=== PATIENT | female | born 1935 | race Caucasian/White ===

== ENCOUNTER 2016-09-06 10:24 | Outpatient (CLI) | END 2016-09-06 10:25 | disposition home or self-care (01) ==

== ENCOUNTER 2016-12-12 10:36 | Outpatient (CLI) | payer MEDICARE, OTHER | END 2016-12-12 10:37 | disposition home or self-care (01) | DX: C50.911 Malignant neoplasm of unspecified site of right female breast (principal) ==

== ENCOUNTER 2017-10-08 15:33 | Emergency (ER) | payer MEDICARE, OTHER ==
[2017-10-08 15:45] VITALS: BP 133/80
--- NOTE | 2017-10-08 16:19 | ED Physician Documentation ---
PD HPI LOWER EXT INJURY - Stated complaint Stated Complaint: KNEE PAIN - Chief complaint Chief Complaint: Ext Problem - History obtained from History obtained from: Patient - History of Present Illness PD HPI LOW EXT INJURY LOCATION: Other (She has a long history of knee problems, had multiple surgeries but not for many years. Her knees were doing okay but coming down the stairs today at [employer] she started to feel a pop and tightness in the knee and was having difficulty walking, she is pain-free at rest. 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, Breast cancer (Status post right lumpectomy and 6 weeks of radiation therapy.) : Frequency HEENT: Glaucoma Psych: None Musculoskeletal: Osteoarthritis Derm: 12 - Past Surgical History Past Surgical History: Yes General: Cholecystectomy, Appendectomy /TRACTOR CRANE OPERATOR: Hysterectomy, Oophrectomy HEENT: Cataracts - Present Medications Home Medications: Ambulatory Orders Medication Instructions Recorded Confirmed Amlodipine Besylate 10 mg PO DAILY 01/18/13 02/27/17 Calcium Carbonate/Vitamin D3 1 each PO DAILY 01/18/13 02/27/17 [Calcium 600 + D3 Softgel] Cholecalciferol (Vitamin D3) 1,000 unit PO DAILY 01/18/13 02/27/17 [Vitamin D] Dextran 70/Hypromellose 1 each EACHEYE DAILY PRN 01/18/13 02/27/17 [Artificial Tears] Hydrochlorothiazide 25 mg PO DAILY 01/18/13 02/27/17 Omeprazole [PriLOSEC] 10 mg PO DAILY 01/18/13 02/27/17 Aspirin [Aspirin EC] 650 mg ORAL DAILY 06/16/14 02/27/17 Potassium Chloride 10 meq ORAL DAILY 06/16/14 02/27/17 Timolol 0.25% Ophth Drops 1 drop EACHEYE BID 06/16/14 02/27/17 [Timoptic 0.25% Ophth Drops] - Allergies Allergies/Adverse Reactions: Allergies Allergy/AdvReac Type Severity Reaction Status Date / Time sulfamethoxazole Allergy Severe hypotension, Verified 02/04/18 15:45 [From Bactrim] hives trimethoprim [From Bactrim] Allergy Severe hypotension, Verified 10/08/17 15:45 hives - Social History Does the pt smoke?: No Smoking Status: Never smoker Does the pt drink ETOH?: No Does the pt have substance abuse?: No - Immunizations Immunizations are current?: Yes - POLST Patient has POLST: Yes POLST Status: DNR PD ED PE NORMAL - Vitals Vital signs reviewed: Yes - General General: Alert and oriented X 3, No acute distress - Extremities Extremities: Other (Left first CMC is mildly swollen and tender but were not warm or red. The right knee has mild posterior tenderness in the popliteal fossa but ligamentous testing is intact, there is no calf pain or tenderness or swelling or asymmetry.) - Neuro Neuro: Alert and oriented X 3, Normal speech Results - Vitals Vitals: Vital Signs - 24 hr 10/08/17 15:44 Temperature 36.8 C Heart Rate 97 Respiratory 20 Rate Blood Pressure 133/80 H O2 Saturation 96 Oxygen O2 Source Room air - Rads (name of study) R knee 4v Radiology: EMP read contemporaneously (severe OA) L hand 3v Radiology: EMP read contemporaneously (OA, david [facility]) PD MEDICAL DECISION MAKING - ED course ED course: 81-year-old woman with history of knee problems presents with pain in the right knee that started while going downstairs today and has significant osteoarthritis especially the medial compartment on x-ray. She declined pain medication. She has an appointment with the orthopedist on Monday. Departure - Departure Disposition: 01 Home, Self Care Clinical Impression: Primary osteoarthritis, left hand Osteoarthritis of right knee Qualifiers: Osteoarthritis type: primary Qualified Code(s): M17.11 - Unilateral primary osteoarthritis, right knee Condition: Good Record reviewed to determine appropriate education?: Yes Instructions: Osteoarthritis Comments: Follow-up with the orthopedic surgeon on Monday as scheduled. Return if worse. Please let the orthopedic surgeon know that we did x-rays today. Tylenol as needed for pain. Discharge Date/Time: 10/08/17 17:19
--- NOTE | 2017-10-08 17:20 | XRAY Report ---
EXAM: RIGHT KNEE RADIOGRAPHY EXAM DATE: 10/08/2017 04:32 PM. CLINICAL HISTORY: Knee pain. Right knee pain after fall yesterday. COMPARISON: None. TECHNIQUE: 4 views. FINDINGS: Bones: No evidence for acute fracture. Joints: Severe medial compartment femoral tibial joint space narrowing with sclerosis and osteophytes . Moderate lateral compartment femoral tibial osteophytes. Moderate patellofemoral osteophytes. No di slocation. No knee joint effusion. Soft Tissues: Unremarkable. The femoral and popliteal artery calcification. IMPRESSION: 1. No evidence for acute fracture. 2. Moderate to severe tricompartment knee degenerative joint disease, most severe at the medial kayleigh rtment femoral tibial joint. [facility] Referring Provider Line: [phone] SITE ID: [id number]
--- NOTE | 2017-10-08 17:20 | XRAY Preliminary Report ---
Exam: XR KNEE 4 VIEW RT IMPRESSION: 1. No evidence for acute fracture. 2. Moderate to severe tricompartment knee degenerative joint disease, most severe at the medial kayleigh rtment femoral tibial joint. [facility] SITE ID: [id number]
--- NOTE | 2017-10-08 17:23 | XRAY Preliminary Report ---
Exam: XR HAND 3 VIEW LT IMPRESSION: 1. No evidence for acute fracture. 2. First mild carpal metacarpal and minimal interphalangeal osteoarthritis. [facility] SITE ID: [id number]
--- NOTE | 2017-10-08 17:24 | XRAY Report ---
EXAM: LEFT HAND RADIOGRAPHY EXAM DATE: 10/08/2017 04:32 PM. CLINICAL HISTORY: Hand pain at CMC. Left hand pain, chronic, fell today. Pain at the first CMC joint. COMPARISON: Left wrist 02/12/2009. TECHNIQUE: 3 views. FINDINGS: Bones: No evidence for acute fracture. Joints: First mild carpal metacarpal and minimal interphalangeal osteoarthritis. Soft Tissues: Unremarkable. IMPRESSION: 1. No evidence for acute fracture. 2. First mild carpal metacarpal and minimal interphalangeal osteoarthritis. [facility] Referring Provider Line: [phone] SITE ID: [id number]
== END 2017-10-08 17:19 | disposition home or self-care (01) ==
LOC: ED 15:33
DX: M17.11 Unilateral primary osteoarthritis, right knee (principal); M19.042 Primary osteoarthritis, left hand; I10 Essential (primary) hypertension; Z85.3 Personal history of malignant neoplasm of breast; Z92.3 Personal history of irradiation
CPT/HCPCS: 99283

== ENCOUNTER 2017-12-18 08:28 | Outpatient (CLI) | payer MEDICARE, OTHER | END 2017-12-18 08:29 | disposition home or self-care (01) | LOC: DI 08:28 | PROVIDERS: ATTEND Internal Medicine Hematology & Oncology | DX: Z53.9 Procedure and treatment not carried out, unspecified reason (principal) ==

== ENCOUNTER 2018-01-10 09:40 | Outpatient (CLI) | payer MEDICARE, OTHER ==
--- NOTE | 2018-01-10 12:39 | Ultrasound Report ---
ULTRASOUND RIGHT BREAST: 01/10/2018 CLINICAL INDICATION: Palpable abnormality. TECHNIQUE: Real-time scanning was performed with billing representative static images obtained. FINDINGS: Ultrasound of the palpable region identified by the patient was performed. Unremarkable parenchymal lobules are seen. No discrete solid or cystic mass is identified. No sonographically suspicious findings are seen. IMPRESSION: NEGATIVE EXAMINATION. RECOMMENDATION: Routine annual screening unless otherwise clinically indicated. BI-RADS CATEGORY 1 - NEGATIVE. TD: 01/10/2018 12:38
--- NOTE | 2018-01-10 13:38 | Mammography Report ---
DIAGNOSTIC BILATERAL MAMMOGRAM: 01/10/2018 CLINICAL INDICATION: Palpable abnormality right lateral breast. TECHNIQUE: Bilateral CC, MLO view, right true lateral and laterally exaggerated craniocaudal views. FINDINGS: The breasts demonstrate heterogeneously dense fibroglandular parenchyma bilaterally. Postoperative and posttreatment changes in the right breast are stable. Coarse and punctate, typically benign calcifications are present. No mammographic abnormality is appreciated in the far lateral right breast, at the site of palpable abnormality identified by the patient. Please also refer to right breast ultrasound of the same day. IMPRESSION: BENIGN FINDINGS. RECOMMENDATION: Routine annual screening unless otherwise clinically indicated. BI-RADS CATEGORY 2 - BENIGN FINDINGS. STANDARD QUALIFYING STATEMENTS: 1. This examination was reviewed with the aid of Computer-Aided Detection (CAD). 2. A negative or benign imaging report should not delay biopsy if clinically suspicious findings are present. Consider surgical consultation if warranted. More than 5% of cancers are not identified by imaging. 3. Dense breasts may obscure an underlying neoplasm. TD: 01/10/2018 13:37
== END 2018-01-10 09:41 | disposition home or self-care (01) ==
LOC: DI 09:40
PROVIDERS: ATTEND Internal Medicine Hematology & Oncology
DX: N63.10 Unspecified lump in the right breast, unspecified quadrant (principal)
CPT/HCPCS: 76642; 77066

== ENCOUNTER 2021-07-16 12:38 | Outpatient (CLI) | payer MEDICARE, OTHER | END 2021-07-16 12:39 | disposition short-term general hospital (02) | LOC: EMS 12:38 | DX: R07.9 Chest pain, unspecified (principal) | CPT/HCPCS: A0425; A0427 ==